=== PATIENT | male | born 1940 | race Caucasian/White ===

== ENCOUNTER 2016-02-24 09:23 | Emergency (ER) | payer OTHER ==
[~2016-02-24] VITALS: Ht 177.8 cm; Wt 66.0 kg
[~2016-02-24 09:23] MED LIST: ASPIRIN EC325 MG PO; ATORVASTATIN CA80 MG PO; CLOPIDOGREL75 MG PO; GLUCOPHAGE500 M1 PO; GLUCOPHAGE500 MG PO; LISINOPRIL10 MG PO; LISINOPRIL2.5 MG PO; LOPRESSOR25 MG PO; LOPRESSOR50 MG PO; MELOXICAM15 MG PO; NICOTINE PATCH1 EAC2 TD; PLAVIX75 MG PO; TRAMADOL HCL50 MG PO; ZESTRIL,PRINIV2.5 MG PO
[2016-02-24 11:02] LABS: HEMATOCRIT 44.4 % (38.0-50.0); MCH 31.4 PG (29.0-34.0); MCHC 33.6 G/DL (30.0-36.0); MCV 93.5 FL (86-99); MEAN PLAT.VOLUME 10.1 uM^3 (9.0-12.4); PLATELET COUNT 224 K/uL (156-360); RBC DIS.WIDTH-CV 14.6 % (11.8-14.6); RBC DIS.WIDTH-SD 48.2 % (39-53); RED BLOOD COUNT 4.75 M/uL (4.00-5.50); WHITE BLOOD COUNT 8.2 K/uL (4.1-10.2)
[2016-02-24 11:10] LABS: CHLORIDE 103 mEq/L (99-109); POTASSIUM 4.7 mEq/L (3.7-5.4); SODIUM 139 mEq/L (136-147)
[2016-02-24 11:12] LABS: GLUCOSE 93 mg/dL (70-99)
[2016-02-24 11:14] LABS: ANION GAP 10 MEQ/L (2-14)
[2016-02-24 11:16] LABS: GFR ESTIMATE (CALCULATED) > 59 mL/min/
[2016-02-24 11:17] LABS: UREA NITROGEN (BUN) 19 mg/dL (9-23)
[2016-02-24 11:23] LABS: TROP-I INTERPRETATION NEGATIVE; TROPONIN-I 0.24 ng/mL (0.0-0.30)
[2016-02-24 13:22] VITALS: BP 106/75
== END 2016-02-24 13:26 | disposition left against medical advice (07) ==
LOC: EME 09:23
DX: R07.9 Chest pain, unspecified (principal); R51 Headache; M25.551 Pain in right hip; R20.0 Anesthesia of skin; Z91.81 History of falling; G89.29 Other chronic pain; Z95.1 Presence of aortocoronary bypass graft; Z79.891 Long term (current) use of opiate analgesic; F17.200 Nicotine dependence, unspecified, uncomplicated; Z79.82 Long term (current) use of aspirin
CPT/HCPCS: 70450; 71020; 73502; 80048; 84484; 85027; 93005; 99281; 99285

== ENCOUNTER 2017-10-06 10:36 | Observation (INO) | payer OTHER ==
[~2017-10-06] VITALS: Ht 177.8 cm; Wt 70.2 kg
[2017-10-06 11:47] LABS: BASOPHIL (%) 0.6 % (0-1); BASOPHIL COUNT 0.1 K/uL (0-0.1); EOSINOPHIL (%) 4.2 % (0-5); EOSINOPHIL COUNT 0.4 K/uL (0-0.3); HEMOGLOBIN 11.8 G/DL (12.5-16.6); IMMATURE GRANULOCYTE (%) 0.4 % (0.0-0.7); LYMPHOCYTE (%) 14.3 % (15-42); LYMPHOCYTE COUNT 1.2 K/uL (1.0-2.8); MCH 32.3 PG (29.0-34.0); MCHC 32.8 G/DL (30.0-36.0); MCV 98.6 FL (86-99); MONOCYTE (%) 6.6 % (3-12); MONOCYTE COUNT 0.6 K/uL (0-0.8); NEUTROPHIL (%) 73.9 % (45-76); NEUTROPHIL COUNT 6.2 K/uL (1.8-6.4); PLATELET COUNT 217 K/uL (156-360); RBC DIS.WIDTH-CV 14.5 % (11.8-14.6); RBC DIS.WIDTH-SD 52.8 % (39-53); RED BLOOD COUNT 3.65 M/uL (4.00-5.50); WHITE BLOOD COUNT 8.4 K/uL (4.1-10.2)
[2017-10-06 11:52] LABS: INTER. NORMALIZED RATIO 1.3
[2017-10-06 11:54] LABS: PTT 30.8 SEC (25-37)
[2017-10-06 12:04] LABS: CHLORIDE 105 mEq/L (99-109); POTASSIUM 4.1 mEq/L (3.7-5.4); SODIUM 138 mEq/L (136-147)
[2017-10-06 12:05] LABS: GLUCOSE 117 mg/dL (70-99)
[2017-10-06 12:08] LABS: TROP-I INTERPRETATION NEGATIVE; TROPONIN-I 0.02 ng/mL (0.0-0.30)
[2017-10-06 12:09] LABS: CREATININE 0.9 mg/dL (0.6-1.3); GFR ESTIMATE (CALCULATED) > 59 mL/min/ (58.99-99999)
[2017-10-06 12:10] LABS: UREA NITROGEN (BUN) 19 mg/dL (9-23)
[2017-10-06] MEDS ORDERED: ZESTRIL2.5 MG PO (14:52)
[2017-10-06] MEDS ORDERED: ZOLOFT50 MG PO (14:52)
[2017-10-06] MEDS ORDERED: BUSPAR10 MG PO (14:53)
[2017-10-06] MEDS ORDERED: ASPIRIN325 MG PO (14:53)
[2017-10-06] MEDS ORDERED: MECLIZINE HCL12.5 M1 PO (14:54)
[2017-10-06] MEDS ORDERED: MOBIC7.5 MG PO (14:55)
[2017-10-06] MEDS ORDERED: FLONASE16 G1 BOTH NARES (14:55)
[2017-10-06] MEDS ORDERED: VENTOLIN HFA18 GM IH (14:57)
[2017-10-06] MEDS ORDERED: ZANTAC150 MG PO (14:57)
[2017-10-06] MEDS ORDERED: AUGMENTIN875 MG PO (14:57)
[2017-10-06 15:06] VITALS: BP 164/99
[2017-10-06 16:17] LABS: TROP-I INTERPRETATION NEGATIVE; TROPONIN-I 0.01 ng/mL (0.0-0.30)
[2017-10-06 20:09] VITALS: BP 126/65
[2017-10-06 22:17] LABS: TROP-I INTERPRETATION NEGATIVE; TROPONIN-I 0.02 ng/mL (0.0-0.30)
[2017-10-06 23:59] VITALS: BP 118/66
[2017-10-07 04:01] VITALS: BP 108/76
[2017-10-07 06:11] LABS: TROP-I INTERPRETATION NEGATIVE; TROPONIN-I 0.05 ng/mL (0.0-0.30)
[2017-10-07 07:31] VITALS: BP 121/80
[2017-10-07] MEDS ORDERED: DULERA 100 MCG/13 GM IH (08:24)
[2017-10-07] MEDS ORDERED: PREDNISONE10 MG PO (08:24)
[2017-10-07] MEDS ORDERED: SPIRIVA RESPIMAT4 GM IH (08:24)
[2017-10-07] MEDS ORDERED: AZITHROMYCIN500 M1 PO (08:24)
[2017-10-07] MEDS ORDERED: LASIX20 MG PO (08:24)
[2017-10-07 10:18] LABS: HEMOGLOBIN A1c (GLYCOHEMOGLOB) 6.2 % (Below 5.7)
[2017-10-07] MEDS ORDERED: NITROGLYCERIN0.4 MG SL (11:32)
[2017-10-07 11:39] VITALS: BP 147/81
[2017-10-07 15:38] VITALS: BP 144/76
== END 2017-10-07 18:13 | disposition home or self-care (01) ==
LOC: EME 10:36 → EDOF 13:16 → ENRESERV 13:17 → 4SOUTH 14:51
PROVIDERS: Emergency Medicine; Hospitalist
DX: R07.89 Other chest pain (principal); J44.1 Chronic obstructive pulmonary disease with (acute) exacerbation; I10 Essential (primary) hypertension; I25.10 Atherosclerotic heart disease of native coronary artery without angina pectoris; Z95.1 Presence of aortocoronary bypass graft; R73.01 Impaired fasting glucose; Z91.19 Patient's noncompliance with other medical treatment and regimen; F17.200 Nicotine dependence, unspecified, uncomplicated; E78.5 Hyperlipidemia, unspecified; Z85.51 Personal history of malignant neoplasm of bladder; H91.90 Unspecified hearing loss, unspecified ear; Z79.82 Long term (current) use of aspirin; Z82.49 Family history of ischemic heart disease and other diseases of the circulatory system
CPT/HCPCS: 71045; 80048; 82948; 83036; 83880; 84484; 85025; 85379; 85610; 85730; 93005; 93306; 94640; 94799; 99281; 99285; G0378; J0360; J1650; J1940; J2920; J2930